=== PATIENT | male | born 1970 | race Caucasian/White ===

== ENCOUNTER 2023-06-12 21:46 | Emergency (ER) | payer SELFPAY ==
[2023-06-12 21:57] LABS: Glucose, Whole Blood 187 mg/dL (60-115)
--- NOTE | 2023-06-12 22:04 | MHC.EDTECH ---
machine cloth examiner called @3999 per .
--- NOTE | 2023-06-12 22:13 | PC.NURSE ---
PT ARRIVED 2146 VIA FD CPR IN PROGRESS WITH ELVIRA; FOUND SLUMPED OVER IN CAR BY BYSTANDER; U/K DOWN TIME. PEA ON MONITOR. ETO2 60-90. 4 EPI/1 BICARB VIA EMS. 18G R.AC VIA EMS. EMS STATES RECENT PNEUMONIA? BGL 285 VIA EMS. ON ARRIVAL [address]. SOFIA AT BEDSIDE FOR VERBAL ORDERS. 2148 EPI GIVEN. 2150 BICARB GIVEN. 2151 TUBE CONFIRMED. 2151 PULSE CHECK. BGL 187. CPR RESUMED. 2152 EPI GIVEN. 2153 PULSE CHECK. RESUME CPR. 2154 PULSE CHECK/ULTRASOUND FOR CARDIAC ACTIVITY. 2156 ?FAINT PULSE. PEA. 2158 TOD. 2200 NO CARDIAC ACITIVITY ON U/S; PEA ON MONITOR. 2214 CALL to [facility] TO NOTIFY . OER DR. SOFIA PT ACCEPTED BY [facility]ILITIES TE[facility].
--- NOTE | 2023-06-12 22:18 | ED_ITS ---
HPI - CPR General Chief Complaint: Cardiac Arrest/CPR Stated Complaint: Cardiac Arrest Time Seen by Provider: 06/12/23 22:03 Source: family (Brother, and Nephew) and EMS Mode of arrival: EMS Limitations: other (Cardiac arrest) History of Present Illness HPI narrative: A 52-year-old male came in by ambulance after having cardiac arrest. Patient was found in his car in a driveway by bystander, was unresponsive patient was taken out of the car and CPR started about 30 minutes before arrival as reported by EMS patient initially was asystolic with no pulse. Patient was intubated at the scene, CPR started, patient was given total 4 mg of epinephrine and 1 amp of bicarb, blood sugar was 240 by EMS. Patient was transported to the hospital on arrival CPR in progress, patient was intubated, patient was given total of 3 mg of epinephrine and 1 amp of bicarb, using the GlideScope to confirm intubation from patient show no sign of trauma. No ultrasound cardiac activity patient was pronounced at 21:58. I spoke with the family in the emergency department and notified time. Case was accepted by [facility] case #[id number] by Rama Barnes. Related Data Allergies Allergy/AdvReac Type Severity Reaction Status Date / Time shellfish derived Allergy Severe HIVES Unverified 03/06/20 16:07 [SHELLFISH DERIVED] shellfish Allergy Unknown Uncoded 03/20/19 00:00 Review of Systems 2 Review of Systems: Yes Unobtainable due to mental condition Physical Exam 2 Vital Signs: Vital Signs: Vital signs have been reviewed and appear to be correct. Blood pressure unobtainable, asystole, intubated with no spontaneous breathing. Appearance: Obese, unresponsive. Head: Normal external exam. Normocephalic. Atraumatic. Eyes: Pupil is 3 mm fixed. ENT: No sign of trauma Neck: Normal inspection. Neck supple. CVS: Asystole Respiratory: Apneic, intubated was good bilateral breathing sounds. Back: Small area of contusion to the lower back please refer to the picture. Neuro: GCS of 3. Course Reevaluation(s) Reevaluation #1: Cardiopulmonary arrest, accepted by medical physics researcher, family notified. Time: 22:39 Medical Decision Making Differential Diagnosis Differential Diagnoses: The differential diagnosis associated with the presentation includes (Cardiopulmonary arrest) Admission/Observation Consideration of admission/observation: Escalation of care including admission/observation considered Lab Data Labs: Lab Results 06/12/23 Range/Units 21:52 POC Glucose 187 H (60-115) mg/dL Discharge Plan Discharge Clinical Impression: Cardiac arrest Patient Disposition:
--- NOTE | 2023-06-12 22:48 | PC.NURSE ---
Pt sister Lesli Burger can be reached at [phone].
--- NOTE | 2023-06-12 23:12 | MHC.EDTECH ---
This tech took report,ME accepted Case # [id number] per
--- NOTE | 2023-06-13 00:18 | MHC.EDTECH ---
[facility] called @ 0016, spoke with Tatiana they are placing a hold on the patient,Shannan RN is aware
--- NOTE | 2023-06-13 07:17 | MHC.EDTECH ---
@1241 laundry marker supervisor Nikki calls to report the ME has declined the case
--- NOTE | 2023-06-13 07:18 | MHC.EDTECH ---
@0925 ME called to speak with Dr. Randhawa, (Maya) gave phone to Dr. Randhawa. Confirmed ME declined the case
== END 2023-06-12 23:05 | disposition expired ==
PROVIDERS: Emergency Provider Emergency Medicine
DX: I46.9 Cardiac arrest, cause unspecified (principal)
CPT/HCPCS: 82947; 96374; 96375; 99281; 99285; J0171